=== PATIENT | male | born 1970 | race Caucasian/White ===

== ENCOUNTER → 2022-05-31 08:01 | Outpatient (CLI) | payer BC, SELFPAY ==
[2022-05-31 09:01] LABS: Add Manual Diff / Slide Review NO; Basophils Absolute Auto 100 /uL (0-100); Basophils Percent Auto 0.9 % (0-2); Eosinophils Absolute Auto 300 /uL (0-450); Eosinophils Percent Auto 3.1 % (2-4); Hematocrit 47.9 % (41-53); Hemoglobin 16.3 g/dL (13.5-17.5); Lymphocytes Absolute Auto 2100 /uL (1100-4500); Lymphocytes Percent Auto 26.3 % (25-40); Mean Corpuscular Hemoglobin 26.7 PG (26-34); Mean Corpuscular Volume 78.3 fL (80-100); Monocytes Absolute Auto 600 /uL (0-900); Monocytes Percent Auto 7.3 % (3-14); Neutrophils Absolute Auto 5000 /uL (1500-7000); Neutrophils Percent Auto 62.4 % (50-75); Platelet Count 209 X10^3/uL (150-400); Red Blood Cell Count 6.11 X10^6/uL (4.5-5.9); Red Cell Distribution Width 14.4 % (11.6-14.8); White Blood Cell Count 8.1 X10^3/uL (4.5-11.0)
[2022-05-31 09:23] LABS: Alanine Aminotransferase 27 IU/L (<50); Albumin 4.8 g/dL (3.5-5.0); Albumin Globulin Ratio 1.4 (1.0-2.8); Alkaline Phosphatase 63 U/L (38-126); Aspartate Aminotransferase 24 IU/L (17-59); BUN Creatinine Ratio 25.3 (6-22); Bilirubin Total 0.7 mg/dL (0.2-1.3); Blood Urea Nitrogen 22 mg/dL (9-20); Carbon Dioxide 24 mmol/L (22-32); Chloride 105 mmol/L (98-107); Cholesterol 166 mg/dL (140-199); Estimated Glomerular Filt Rate > 60 mL/min (>60); Globulin 3.4 g/dL (1.7-4.1); Glucose 129 mg/dL (70-100); HDL Cholesterol 47 mg/dL (40-60); HEMOLYSIS < 15 (0-50); LDL Cholesterol Calculated 105 mg/dL (<100); Potassium 4.3 mmol/L (3.4-5.1); Sodium 138 mmol/L (137-145); Total Protein 8.2 g/dL (6.3-8.2); Triglycerides 69 mg/dL (35-150)
[2022-05-31 09:50] LABS: TSH w/ Reflex to FT4 2.49 uIU/mL (0.47-4.68)
[2022-05-31 10:10] LABS: Creatinine Urine Random 97.1 mg/dL
[2022-05-31 10:15] LABS: Microalbumi Creatinin Ratio Ur 6.1 ug/mg CR (<30); Microalbumin Urine Random 0.6 mg/dL (0-1.6)
[2022-06-02 18:02] LABS: Hep C Virus Ab w/Reflex Quant NEGATIVE s/c (NEGATIVE)
== END ==
PROVIDERS: PCP Family Medicine; Referring Provider Family Medicine; Visit Provider Family Medicine
DX: C67.9 Malignant neoplasm of bladder, unspecified (principal); E11.69 Type 2 diabetes mellitus with other specified complication; I10 Essential (primary) hypertension; I48.91 Unspecified atrial fibrillation
CPT/HCPCS: 36415; 80053; 80061; 82043; 82570; 83036; 84443; 85025; 86803

== ENCOUNTER → 2022-06-05 07:51 | Outpatient (CLI) | payer BC, SELFPAY ==
--- NOTE | 2022-06-26 12:12 | PM.CARDMON.1 ---
Electrotyper Apprentice Report Referral & Results Date Patient Seen: 06/05/22 Requesting provider: Ruperto Lew Indication: Palpitations Duration of monitoring (days): 14 Diary information: There were 3 patient triggered events and 3 patient diary entries Patient triggered events were associated with sinus rhythm only Patient diary events were associated with sinus rhythm and PACs Data: Minimum heart rate identified was 44 beats per minute at 03:49 on 06/11/2022 Maximum heart rate was 151 beats per minute at 12:23 on 06/09/2022 Less than 1% of identified beats were ventricular or supraventricular ectopic in origin, which would classify them as rare. There was 1 run of SVT that was 7 beats in duration There were no pauses of 3 seconds or longer or episodes of atrial fibrillation identified on this study Impression: No significant dysrhythmias identified on this study. Patient's reported sense of palpitations may be associated with PACs Clinical correlation suggested
== END ==
PROVIDERS: PCP Family Medicine; Referring Provider Family Medicine; Visit Provider Family Medicine
DX: R00.2 Palpitations (principal); I48.91 Unspecified atrial fibrillation
CPT/HCPCS: 93246; 93248

== ENCOUNTER 2022-09-08 06:57 | Day surgery (SDC) | payer BC, SELFPAY ==
--- NOTE | 2022-09-08 | PATH_ITS ---
[facility] Accession Number: [id number] . 01 Material submitted: . colon - CECAL POLYP . 01 Diagnosis: Cecum, Polyp, Biopsy: Tubular adenoma. MRV 09/10/2022 1446 Local . 01 Electronically signed: . Alejandra Granados MD, Pathologist NPI- [id number] . 01 Gross description: . CECAL POLYP: Received in formalin are multiple fragment(s) of odonnell, soft tissue measuring 1.8 x 0.6 x 0.1 cm in aggregate submitted entirely in 1 cassette(s) /CPE 09/09/2022 0522 Local . 01 Pathologist provided ICD-10: D12.0 . 01 CPT . 201632 Performed at: 01 [facility] [address] [place] [address] [id number] MD Dioni Alejandra MD Phone: [phone]
[2022-09-08 07:28] VITALS: BP 140/91; PULSE 96; RESP 16; TEMP 36.3; O2SAT 96; BMI 36.1
--- NOTE | 2022-09-08 07:40 | PM.HP.1 ---
History of Present Illness History of Present Illness [place] [facility] [place]: 52-year-old male with atrial fibrillation currently on Eliquis who was seen in our office 08/14/2022 and therefore colon cancer screening. Eliquis has been held prior to procedure Patient History Medical History Atrial fibrillation (~2002) Chicken pox Foot pain (~2002) Hypertension Sleep apnea Tinnitus (~2009) Type 2 diabetes mellitus Surgical History History of vasectomy (~1997) Family & Social History Family History Father Diabetes mellitus History of heart disease Hypertension Mother Diabetes mellitus Hypertension Grandfather Diabetes mellitus History of heart disease Hypertension Grandmother Diabetes mellitus History of heart disease Hypertension Grandfather Diabetes mellitus History of heart disease Hypertension Grandmother Cancer Tobacco & Substance use: Smoking Status Former smoker Meds Home Medications and Allergies Home Medications Medication Instructions Recorded Confirmed Type metformin 1,000 mg 24 hr 1,000 mg PO DAILY #90 tabs 07/10/22 08/11/22 Rx tablet,extended release apixaban 5 mg tablet (Eliquis) 5 mg PO BID #180 tabs 07/21/22 08/11/22 Rx metoprolol succinate 25 mg 25 mg PO DAILY #90 tabs 07/21/22 08/11/22 Rx tablet,extended release 24 hr Allergies Allergy/AdvReac Type Severity Reaction Status Date / Time No Known Drug Allergies Allergy Verified 08/11/22 15:33 Exam Narrative Exam Narrative: General: Patient is obese, not in apparent distress Cardiovascular: Regular rate and rhythm, no murmurs, rubs, or gallops; no evidence of edema; no palpable abdominal aortic aneurysm Gastrointestinal: Normoactive bowel sounds, soft, nontender, nondistended, no rebound tenderness, no hepatosplenomegaly, no evidence of hernia Assessment & Plan Assessment & Plan narrative: 52-year-old male here for colon cancer screening. Patient has been off Eliquis for this procedure Regarding the procedure(s), the risks and potential complications, benefits, and alternatives (including not doing the procedure) were discussed with the patient. The risks include but are not limited to bleeding, splenic injury, infection, perforation which may require surgical intervention, missed lesions, and adverse reactions to sedative medicines. After a question and answer period, the patient agreed to proceed with the procedure(s) and gives informed consent. Time Spent With Patient Critical Care time: I spent a total of [] minutes of critical care time on this patient's care today; this time is exclusive of procedural time.
[2022-09-08 07:47] LABS: COVID19 -Nasal RAPID Negative (Negative)
[2022-09-08] MEDS: SODIUM CHLORIDE 0.9% 1,000 ML 70 ML IV (07:48)
--- NOTE | 2022-09-08 07:59 | PM.OP.COLON ---
Operative Date/Time/Diagnoses Date of procedure: 09/08/22 Procedure Notes Procedure in detail: Surgeon: Armand Saleem MD Procedure: Colonoscopy with polypectomy Preoperative diagnosis: Colon cancer screening Postoperative diagnosis: Cecal polyp, sigmoid diverticulosis, grade 2 internal hemorrhoids Medications: Monitored anesthesia care Preanesthesia Assessment An H and P was performed and the Px?s ASA class is 3. The procedure was discussed in detail with the patient. The potential risks and complications including infection, bleeding, missed lesions, perforation, need for surgery in case of perforation, prolonged hospital stay, and were explained. A brief question and answer period was allotted and once all questions were answered, informed consent was obtained. The patient was brought back to the procedure room and placed on standard monitoring. The patient?s vital signs were monitored continuously throughout the entire procedure. Prior to starting, a timeout was performed to confirm the patient?s identity, allergies, medications, and procedure. Procedure in detail The patient was placed in left lateral decubitus position and once adequate sedation was obtained a BETH was performed. The digital rectal examination did not reveal any palpable lesions. The tip of the colonoscope was placed in the anal canal and advanced without difficulty all the way to the cecum which was identified by the appendiceal orifice and the ileocecal valve. Careful examination of all yu of the colon was performed with irrigation of any residual stool. In the cecum, a 3 mm polyp was found. The polyp was removed by means of cold snare. Resection and retrieval were complete with minimal bleeding In the sigmoid colon, there was note of scattered small diverticula Retroflexion was performed in the rectum which revealed grade 2 internal hemorrhoids The patient tolerated the procedure well and will be brought back to the recovery area to be discharged once criteria are met. The prep was judged to be good and adequate to identify polyps less than 5 mm. The withdrawal time was 8 minutes. Complications There were no complications and estimated blood loss was minimal. Recommendations: Resume previous diet Continue outPx medications Restart Eliquis today Follow up pathology results Repeat colonoscopy in 5 or 7 or 10 years depending on pathology results An emergency contact number was given to the patient for any complications related to the procedure
[2022-09-08 08:22] VITALS: BP 116/75; PULSE 91; RESP 14; TEMP 36.3; O2SAT 95
--- NOTE | 2022-09-08 08:32 | SUR.PHASEI ---
0819 pt blood sugar 87. Pt a/o/x4 drinking kimberly faib
[2022-09-08 08:34] VITALS: BP 136/98; PULSE 93; RESP 10; TEMP 36.3; O2SAT 97
[2022-09-08 08:35] VITALS: BP 138/92; PULSE 91; RESP 11; O2SAT 97
== END 2022-09-08 08:55 | disposition home or self-care (01) ==
PROVIDERS: PCP Family Medicine; Referring Provider Internal Medicine Gastroenterology; Visit Provider Internal Medicine Gastroenterology
PROC: 0DJD8ZZ Inspection of Lower Intestinal Tract, Via Natural or Artificial Opening Endoscopic (ICD-10-PCS; CPT 45378; principal; 2022-09-08 08:00)
DX: Z12.11 Encounter for screening for malignant neoplasm of colon (principal); E11.9 Type 2 diabetes mellitus without complications; I48.91 Unspecified atrial fibrillation; Z79.01 Long term (current) use of anticoagulants; Z79.84 Long term (current) use of oral hypoglycemic drugs; E66.9 Obesity, unspecified; Z68.38 Body mass index [BMI] 38.0-38.9, adult; K57.30 Diverticulosis of large intestine without perforation or abscess without bleeding; K64.1 Second degree hemorrhoids; D12.0 Benign neoplasm of cecum
CPT/HCPCS: 45385; 87635; C9803; J2704

== ENCOUNTER → 2022-10-13 06:42 | Outpatient (CLI) | payer BC, SELFPAY ==
[2022-10-13 09:26] LABS: Hemoglobin A1C% w Est Avg Glu 6.1 % (4.0-6.0)
== END ==
PROVIDERS: PCP Family Medicine; Referring Provider Family Medicine; Visit Provider Family Medicine
DX: E11.69 Type 2 diabetes mellitus with other specified complication (principal)
CPT/HCPCS: 36415; 83036

== ENCOUNTER → 2023-01-10 08:03 | Outpatient (CLI) | payer BC, SELFPAY ==
[2023-01-10 09:23] LABS: Hemoglobin A1C% w Est Avg Glu 6.1 % (4.0-6.0)
[2023-01-10 09:30] LABS: Alanine Aminotransferase 24 IU/L (<50); Albumin 4.5 g/dL (3.5-5.0); Albumin Globulin Ratio 1.5 (1.0-2.8); Alkaline Phosphatase 52 U/L (38-126); Aspartate Aminotransferase 19 IU/L (17-59); BUN Creatinine Ratio 18.8 (6-22); Bilirubin Total 0.9 mg/dL (0.2-1.3); Blood Urea Nitrogen 18 mg/dL (9-20); Calcium 9.5 mg/dL (8.4-10.2); Carbon Dioxide 27 mmol/L (22-32); Chloride 100 mmol/L (98-107); Estimated Glomerular Filt Rate > 60 mL/min (>60); Glucose 137 mg/dL (70-100); HEMOLYSIS < 15 (0-50); Potassium 4.8 mmol/L (3.4-5.1); Sodium 140 mmol/L (137-145); Total Protein 7.5 g/dL (6.3-8.2)
== END ==
PROVIDERS: PCP Family Medicine; Referring Provider Family Medicine; Visit Provider Family Medicine
DX: E11.69 Type 2 diabetes mellitus with other specified complication (principal); I48.91 Unspecified atrial fibrillation
CPT/HCPCS: 36415; 80053; 83036

== ENCOUNTER → 2023-06-03 09:23 | Outpatient (CLI) | payer OTHER, SELFPAY ==
[2023-06-03 11:22] LABS: Add Manual Diff / Slide Review NO; Basophils Absolute Auto 100 /uL (0-100); Basophils Percent Auto 0.9 % (0-2); Eosinophils Absolute Auto 200 /uL (0-450); Eosinophils Percent Auto 2.8 % (2-4); Hematocrit 47.1 % (41-53); Hemoglobin 16.2 g/dL (13.5-17.5); Lymphocytes Absolute Auto 1900 /uL (1100-4500); Lymphocytes Percent Auto 25.9 % (25-40); Mean Corpuscular HGB Conc 34.3 % (30-36); Mean Corpuscular Hemoglobin 27.8 PG (26-34); Mean Corpuscular Volume 80.8 fL (80-100); Monocytes Absolute Auto 600 /uL (0-900); Neutrophils Absolute Auto 4600 /uL (1500-7000); Neutrophils Percent Auto 62.4 % (50-75); Platelet Count 236 X10^3/uL (150-400); Red Blood Cell Count 5.82 X10^6/uL (4.5-5.9); Red Cell Distribution Width 14.3 % (11.6-14.8); White Blood Cell Count 7.5 X10^3/uL (4.5-11.0)
[2023-06-03 11:46] LABS: Alanine Aminotransferase 29 IU/L (<50); Albumin 4.4 g/dL (3.5-5.0); Albumin Globulin Ratio 1.3 (1.0-2.8); Alkaline Phosphatase 60 U/L (38-126); Aspartate Aminotransferase 22 IU/L (17-59); BUN Creatinine Ratio 20.2 (6-22); Bilirubin Total 0.5 mg/dL (0.2-1.3); Blood Urea Nitrogen 19 mg/dL (9-20); Calcium 8.9 mg/dL (8.4-10.2); Carbon Dioxide 25 mmol/L (22-32); Chloride 104 mmol/L (98-107); Cholesterol 172 mg/dL (140-199); Estimated Glomerular Filt Rate > 60 mL/min (>60); Globulin 3.3 g/dL (1.7-4.1); Glucose 136 mg/dL (70-100); HDL Cholesterol 50 mg/dL (40-60); HEMOLYSIS < 15 (0-50); LDL Cholesterol Calculated 112 mg/dL (<100); Potassium 4.5 mmol/L (3.4-5.1); Sodium 138 mmol/L (137-145); Total Protein 7.7 g/dL (6.3-8.2); Triglycerides 48 mg/dL (35-150)
[2023-06-03 12:04] LABS: Creatinine Urine Random 185.8 mg/dL
[2023-06-03 12:08] LABS: Microalbumi Creatinin Ratio Ur 3.7 ug/mg CR (<30); Microalbumin Urine Random 0.7 mg/dL (0-1.6)
[2023-06-03 12:17] LABS: TSH w/ Reflex to FT4 2.53 uIU/mL (0.47-4.68)
[2023-06-04 04:38] LABS: x Labcorp Estim. Avg Glu (eAG) 134 mg/dL (.); x Labcorp Hemoglobin A1c 6.3 % (4.8-5.6)
== END ==
PROVIDERS: PCP Family Medicine; Referring Provider Family Medicine; Visit Provider Family Medicine
DX: E11.69 Type 2 diabetes mellitus with other specified complication (principal); I10 Essential (primary) hypertension; I48.91 Unspecified atrial fibrillation
CPT/HCPCS: 36415; 80053; 80061; 82043; 82570; 83036; 84443; 85025

== ENCOUNTER → 2023-12-08 08:24 | Outpatient (CLI) | payer OTHER, SELFPAY ==
[2023-12-08 09:18] LABS: Hemoglobin A1C% w Est Avg Glu 6.9 % (4.0-6.0)
== END ==
LOC: LAB 08:26
PROVIDERS: PCP Family Medicine; Referring Provider Family Medicine; Visit Provider Family Medicine
DX: E11.9 Type 2 diabetes mellitus without complications (principal)
CPT/HCPCS: 36415; 83036

== ENCOUNTER → 2024-03-07 08:43 | Outpatient (CLI) | payer OTHER, SELFPAY ==
[2024-03-07 09:13] LABS: Hemoglobin A1C% w Est Avg Glu 5.5 % (4.0-6.0)
== END ==
PROVIDERS: PCP Family Medicine; Referring Provider Family Medicine; Visit Provider Family Medicine
DX: E11.9 Type 2 diabetes mellitus without complications (principal)
CPT/HCPCS: 36415; 83036

== ENCOUNTER → 2024-06-11 08:16 | Outpatient (CLI) | payer OTHER, SELFPAY ==
[2024-06-11 09:10] LABS: Add Manual Diff / Slide Review NO; Basophils Absolute Auto 100 /uL (0-100); Basophils Percent Auto 1.5 % (0-2); Eosinophils Absolute Auto 200 /uL (0-450); Eosinophils Percent Auto 4.5 % (2-4); Hematocrit 41.3 % (41-53); Hemoglobin 13.9 g/dL (13.5-17.5); Lymphocytes Absolute Auto 1600 /uL (1100-4500); Lymphocytes Percent Auto 33.1 % (25-40); Mean Corpuscular HGB Conc 33.8 % (30-36); Mean Corpuscular Hemoglobin 27.7 PG (26-34); Mean Corpuscular Volume 82.1 fL (80-100); Monocytes Absolute Auto 500 /uL (0-900); Monocytes Percent Auto 10.5 % (3-14); Neutrophils Absolute Auto 2500 /uL (1500-7000); Neutrophils Percent Auto 50.4 % (50-75); Platelet Count 203 X10^3/uL (150-400); Red Blood Cell Count 5.03 X10^6/uL (4.5-5.9); Red Cell Distribution Width 14.9 % (11.6-14.8); White Blood Cell Count 4.9 X10^3/uL (4.5-11.0)
[2024-06-11 10:07] LABS: TSH w/ Reflex to FT4 3.15 uIU/mL (0.47-4.68)
[2024-06-11 10:08] LABS: HEMOLYSIS < 15 (0-50)
[2024-06-11 10:15] LABS: Alanine Aminotransferase 15 IU/L (<50); Albumin 4.5 g/dL (3.5-5.0); Albumin Globulin Ratio 1.6 (1.0-2.8); Alkaline Phosphatase 55 U/L (38-126); Aspartate Aminotransferase 18 IU/L (17-59); Bilirubin Total 0.8 mg/dL (0.2-1.3); Blood Urea Nitrogen 18 mg/dL (9-20); Calcium 9.4 mg/dL (8.4-10.2); Carbon Dioxide 25 mmol/L (22-32); Chloride 107 mmol/L (98-107); Cholesterol 217 mg/dL (140-199); Creatinine Urine Random 75.01 mg/dL; Estimated Glomerular Filt Rate > 60 mL/min (>60); Globulin 2.8 g/dL (1.7-4.1); Glucose 90 mg/dL (70-100); HDL Cholesterol 61 mg/dL (40-60); LDL Cholesterol Calculated 142 mg/dL (<100); Potassium 4.6 mmol/L (3.4-5.1); Sodium 139 mmol/L (137-145); Total Protein 7.3 g/dL (6.3-8.2); Triglycerides 70 mg/dL (35-150)
[2024-06-11 10:21] LABS: Microalbumin Urine Random < 0.6 mg/dL (0-1.6)
[2024-06-11 11:00] LABS: Prostate Specific Antigen Scrn 2.06 ng/mL (0.1-4.0)
[2024-06-13 05:36] LABS: Apolipoprotein B 110 mg/dL (<90)
[2024-06-13 16:53] LABS: Hep C Virus Ab w/Reflex Quant NEGATIVE s/c (NEGATIVE)
== END ==
LOC: LAB 08:17
PROVIDERS: PCP Family Medicine; Referring Provider Family Medicine; Visit Provider Family Medicine
DX: Z12.5 Encounter for screening for malignant neoplasm of prostate (principal); I10 Essential (primary) hypertension; E11.9 Type 2 diabetes mellitus without complications; I48.91 Unspecified atrial fibrillation
CPT/HCPCS: 36415; 80053; 80061; 82043; 82172; 82570; 83036; 84443; 85025; 86803; G0103

== ENCOUNTER → 2024-07-15 15:54 | Outpatient (CLI) | payer OTHER, SELFPAY ==
--- NOTE | 2024-09-01 09:19 | DIAB.MNT ---
Initial Diabetes Medical Nutrition Therapy Assessment Name: Freedom Danielle Date: 07/15/24 Time: 4-5p Dx: Type II Diabetes [place] presents for initial Dm visit with , Saranya. Reports frequent hypoglycemia about once per month. States this happens mid morning to 1p. Endorses dizziness, irritability and BG check of 65 mg/dl. Has lost 100# after keto diet over the last year. Cholesterol is up as a result of keto diet, but hgA1c is 5%. Endorses low fiber diet during this time. Denies constipation. Reports he thinks his afib may be impacted by stress + electrolyte imbalances. States when he drinks electrolyte beverages symptoms of afib resolve. Has questions about BG goals and diet recs. Taking low dose Metformin, requesting d/c of this. Interested in CGM sample. Diet Recall: 9a: 3-4 eggs, cheese 11a: nuts OR meat and veggies (chx and broccoli or 5oz burger with cheese and veggies-- fish 1-2x per week) 4p: pepperoni 3-4oz 90oz water per day 1000mg Na electrolyte beverage per day Anthropometrics: Ht: 6'5 Wt: 264# 05/2024 Physical Activity: 4 mi walking regimen; working toward incorporating basketball. Self-Monitoring Blood Glucose: None lately. H/o 85-90mg/dl FBG and 1 lauryn <125mg/dl. Diabetes Medications: 500mg Metformin XR Pertinent Labs: HgA1c: 6.9% 11/2023 5.5% 02/2024 5% 05/2024 Cholesterol: 217 H LDL: 142 H HDL: 61 Past Medical History: (Last Reviewed 11/20/22 @ 09:21 by Vlad Burrell MD) Atrial fibrillation (~2002) Chicken pox Foot pain (~2002) Hypertension Obstructive sleep apnea of adult Sleep apnea Tinnitus (~2009) Type 2 diabetes mellitus Nutrition Rx: Carbohydrates: Meal:30-45g Snack:15-30g Nutrition Diagnosis: - Predicted excessive saturated fat intake r/t keto diet aeb pt report and elevated lipids - Predicted inadequate fiber intake r/t restricted whole grains and fruit aeb pt report of keto diet and elevated lipids Intervention: This participant was very receptive. Provided appropriate educational handouts. Discussed the following topics: Completed intake assessment. Discussed barriers to care. BG goals per ADA and AACE Hypoglycemia s/s and treatment for him High fiber foods and reducing saturated fats for heart health CGM Sample Reviewed CGM use and equipment Discussed when to check blood sugars using finger stick Reviewed high and low blood sugar signs/symptoms and treatment options Provided education for self-administration of CGM placement Educated patient on alarm settings Discussed how to remove and dispose of equipment Fueling for activity Created SMART goals for patient self-care and success. Goals: Safe resistance training Eat CHO prior to activity Try high fiber foods in moderation to start Wear CGM sample Follow-up: [facility] follow-up in 2-3 weeks Allyn Solano RDN, BUBBA Certified Diabetes Care and Home Service Advisor P: [phone] Thank you for this referral
== END ==
PROVIDERS: Family Provider Family Medicine; PCP Family Medicine; Referring Provider Family Medicine
DX: E11.69 Type 2 diabetes mellitus with other specified complication (principal); Z71.3 Dietary counseling and surveillance; Z79.84 Long term (current) use of oral hypoglycemic drugs
CPT/HCPCS: 97802

== ENCOUNTER → 2024-07-29 10:41 | Outpatient (CLI) | payer OTHER, SELFPAY ==
--- NOTE | 2024-09-01 09:35 | DIAB.MNTFU ---
Follow-up Diabetes Medical Nutrition Therapy Assessment Name: Freedom Danielle Date: 07/29/24 Time: 1407-0719b Dx: Type II Diabetes [place] presents for Dm follow-up visit. Endorses a few lows since last visit, though is eating more consistently through the day to reduce risk of lows. Recent 76 mg/dl reported. Wore CGm sample, results below. Diet Recall: 9a: granola, nuts, yogurt, berries 930a; pb and celery 11a: chicken and olives 4p: pepperoni 3-4oz and nuts 90oz water per day 1000mg Na electrolyte beverage per day Anthropometrics: Ht: 6'5 Wt: 257# today 264# 05/2024 Physical Activity: 4 mi walking regimen Self-Monitoring Blood Glucose: Wore FSL3 for 14 days. Reports indicate a few lows in the 50-65 range, however unclear if these are compression lows given pattern. No confirmed finger stick. TIR: 0% very high 05 high 99% in range 1% low 0% very low Average: 95 mg/dl GMI: 5.6% variation: 15.1% Diabetes Medications: 500mg Metformin XR Pertinent Labs: HgA1c: 6.9% 11/2023 5.5% 02/2024 5% 05/2024 Cholesterol: 217 H LDL: 142 H HDL: 61 Past Medical History: (Last Reviewed 11/20/22 @ 09:21 by Vlad Burrell MD) Atrial fibrillation (~2002) Chicken pox Foot pain (~2002) Hypertension Obstructive sleep apnea of adult Sleep apnea Tinnitus (~2009) Type 2 diabetes mellitus Nutrition Rx: Carbohydrates: Meal:30-45g Snack:15-30g Nutrition Diagnosis: - Predicted excessive saturated fat intake r/t keto diet aeb pt report and elevated lipids - improved - Predicted inadequate fiber intake r/t restricted whole grains and fruit aeb pt report of keto diet and elevated lipids- improved/in progress Intervention: This participant was very receptive. Provided appropriate educational handouts. Discussed the following topics: BG trends and goals Strategies for increasing veggies Strategies for reducing hypoglcyemia Metformin: pros of cardiovascular benefits and cons of potential of small contribution potential for hypo events Created SMART goals for patient self-care and success. Goals: Safe resistance training- not yet Eat CHO prior to activity - met Try high fiber foods in moderation to start- met Wear CGM sample - met Add veggies 2x per day- new Try 7p snack of CHO and Pro combo- new Follow-up: [facility] follow-up in 2-3 months Allyn Solano RDN, BUBBA Certified Diabetes Care and Instructor [employer] P: [phone] Thank you for this referral
== END ==
PROVIDERS: PCP Family Medicine; Referring Provider Family Medicine
DX: E11.649 Type 2 diabetes mellitus with hypoglycemia without coma (principal); Z71.3 Dietary counseling and surveillance
CPT/HCPCS: 97803

== ENCOUNTER → 2024-08-13 08:20 | Outpatient (CLI) | payer OTHER, SELFPAY ==
[2024-08-13 10:26] LABS: Cholesterol 167 mg/dL (140-199); HDL Cholesterol 78 mg/dL (40-60); LDL Cholesterol Calculated 81 mg/dL (<100); Triglycerides 39 mg/dL (35-150)
[2024-08-13 15:33] LABS: Hemoglobin A1C% w Est Avg Glu 4.9 % (4.0-6.0)
[2024-08-14 08:12] LABS: Apolipoprotein B 72 mg/dL (<90)
== END ==
PROVIDERS: PCP Family Medicine; Referring Provider Family Medicine; Visit Provider Family Medicine
DX: I10 Essential (primary) hypertension (principal); E11.9 Type 2 diabetes mellitus without complications; I48.91 Unspecified atrial fibrillation
CPT/HCPCS: 36415; 80061; 82172; 83036

== ENCOUNTER → 2024-12-10 11:11 | Outpatient (CLI) | payer OTHER, SELFPAY ==
[2024-12-10 11:51] LABS: Alanine Aminotransferase 28 IU/L (<50); Albumin 4.4 g/dL (3.5-5.0); Albumin Globulin Ratio 1.4 (1.0-2.8); Alkaline Phosphatase 56 U/L (38-126); Aspartate Aminotransferase 23 IU/L (17-59); BUN Creatinine Ratio 20.6 (6-22); Blood Urea Nitrogen 20 mg/dL (9-20); Calcium 9.3 mg/dL (8.4-10.2); Carbon Dioxide 26 mmol/L (22-32); Chloride 104 mmol/L (98-107); Estimated Glomerular Filt Rate > 60 mL/min (>60); Globulin 3.1 g/dL (1.7-4.1); Glucose 123 mg/dL (70-100); HEMOLYSIS < 15 (0-50); Potassium 4.4 mmol/L (3.4-5.1); Sodium 136 mmol/L (137-145); Total Protein 7.5 g/dL (6.3-8.2)
[2024-12-10 12:37] LABS: Hemoglobin A1C% w Est Avg Glu 5.6 % (4.0-6.0)
== END ==
PROVIDERS: PCP Family Medicine; Referring Provider Family Medicine; Visit Provider Family Medicine
DX: I10 Essential (primary) hypertension (principal); E11.9 Type 2 diabetes mellitus without complications; I48.91 Unspecified atrial fibrillation
CPT/HCPCS: 36415; 80053; 83036

== ENCOUNTER → 2025-04-13 11:52 | Outpatient (CLI) | payer OTHER, SELFPAY ==
[2025-04-13 12:18] LABS: Add Manual Diff / Slide Review NO; Basophils Absolute Auto 100 /uL (0-100); Basophils Percent Auto 1.2 % (0-2); Eosinophils Absolute Auto 200 /uL (0-450); Hematocrit 48.8 % (41-53); Lymphocytes Absolute Auto 1700 /uL (1100-4500); Lymphocytes Percent Auto 25.9 % (25-40); Mean Corpuscular HGB Conc 34.7 % (30-36); Mean Corpuscular Hemoglobin 28.3 PG (26-34); Mean Corpuscular Volume 81.5 fL (80-100); Monocytes Absolute Auto 500 /uL (0-900); Monocytes Percent Auto 7.2 % (3-14); Neutrophils Absolute Auto 4100 /uL (1500-7000); Neutrophils Percent Auto 62.7 % (50-75); Platelet Count 203 X10^3/uL (150-400); Red Blood Cell Count 5.99 X10^6/uL (4.5-5.9); Red Cell Distribution Width 14.1 % (11.6-14.8); White Blood Cell Count 6.5 X10^3/uL (4.5-11.0)
[2025-04-13 12:27] LABS: Hemoglobin A1C% w Est Avg Glu 5.9 % (4.0-6.0)
[2025-04-13 12:34] LABS: Alanine Aminotransferase 47 IU/L (<50); Albumin 4.8 g/dL (3.5-5.0); Albumin Globulin Ratio 1.4 (1.0-2.8); Alkaline Phosphatase 51 U/L (38-126); Aspartate Aminotransferase 71 IU/L (17-59); BUN Creatinine Ratio 21.4 (6-22); Bilirubin Total 1.3 mg/dL (0.2-1.3); Blood Urea Nitrogen 18 mg/dL (9-20); Calcium 9.3 mg/dL (8.4-10.2); Carbon Dioxide 22 mmol/L (22-32); Chloride 104 mmol/L (98-107); Cholesterol 205 mg/dL (140-199); Estimated Glomerular Filt Rate > 60 mL/min (>60); Globulin 3.4 g/dL (1.7-4.1); Glucose 128 mg/dL (70-99); HDL Cholesterol 66 mg/dL (40-60); LDL Cholesterol Calculated 117 mg/dL (<100); Sodium 135 mmol/L (137-145); Total Protein 8.2 g/dL (6.3-8.2); Triglycerides 110 mg/dL (35-150)
[2025-04-13 12:35] LABS: HEMOLYSIS 102 (0-50)
[2025-04-13 14:39] LABS: Creatinine Urine Random 113.51 mg/dL
[2025-04-13 14:45] LABS: Microalbumin Urine Random < 0.6 mg/dL (0-1.6)
[2025-04-14 04:08] LABS: Apolipoprotein B 91 mg/dL (<90)
== END ==
PROVIDERS: PCP Family Medicine; Referring Provider Family Medicine; Visit Provider Family Medicine
DX: I10 Essential (primary) hypertension (principal); E11.69 Type 2 diabetes mellitus with other specified complication; I48.91 Unspecified atrial fibrillation
CPT/HCPCS: 36415; 80053; 80061; 82043; 82172; 82570; 83036; 85025

== ENCOUNTER → 2025-07-08 08:52 | Outpatient (CLI) | payer OTHER, SELFPAY ==
[2025-07-08 10:39] LABS: Add Manual Diff / Slide Review NO; Hematocrit 46.9 % (41-53); Hemoglobin 16.4 g/dL (13.5-17.5); Lymphocytes Absolute Auto 2000 /uL (1100-4500); Mean Corpuscular HGB Conc 34.9 % (30-36); Mean Corpuscular Hemoglobin 28.1 PG (26-34); Mean Corpuscular Volume 80.3 fL (80-100); Platelet Count 214 X10^3/uL (150-400)
[2025-07-08 10:59] LABS: Hemoglobin A1C% w Est Avg Glu 7.2 % (4.0-6.0)
[2025-07-08 11:42] LABS: TSH w/ Reflex to FT4 3.04 uIU/mL (0.47-4.68)
[2025-07-08 11:48] LABS: HEMOLYSIS < 15 (0-50)
[2025-07-08 15:07] LABS: Alanine Aminotransferase 34 IU/L (<50); Albumin 4.5 g/dL (3.5-5.0); Albumin Globulin Ratio 1.4 (1.0-2.8); Alkaline Phosphatase 67 U/L (38-126); Blood Urea Nitrogen 16 mg/dL (9-20); Calcium 9.4 mg/dL (8.4-10.2); Carbon Dioxide 25 mmol/L (22-32); Chloride 102 mmol/L (98-107); Cholesterol 189 mg/dL (140-199); Estimated Glomerular Filt Rate > 60 mL/min (>60); Globulin 3.3 g/dL (1.7-4.1); Glucose 150 mg/dL (70-99); HDL Cholesterol 59 mg/dL (40-60); Potassium 4.8 mmol/L (3.4-5.1); Sodium 140 mmol/L (137-145); Total Protein 7.8 g/dL (6.3-8.2); Triglycerides 90 mg/dL (35-150)
== END ==
PROVIDERS: PCP Family Medicine; Referring Provider Family Medicine; Visit Provider Family Medicine
DX: E11.9 Type 2 diabetes mellitus without complications (principal); I10 Essential (primary) hypertension; I48.91 Unspecified atrial fibrillation; Z12.5 Encounter for screening for malignant neoplasm of prostate
CPT/HCPCS: 36415; 80053; 80061; 82172; 83036; 84443; 85025; G0103